=== PATIENT | male | born 1980 | race Caucasian/White ===

== ENCOUNTER 2018-05-11 08:10 | Emergency (ER) | payer MEDICAID ==
[2018-05-11] MEDS: HYDROCODONE/APAP (10/325) TAB PO (08:36)
== END 2018-05-11 10:25 | disposition left against medical advice (07) ==
LOC: FTE 10:25
DX: S09.90XA Unspecified injury of head, initial encounter (principal); S79.912A Unspecified injury of left hip, initial encounter; S69.92XA Unspecified injury of left wrist, hand and finger(s), initial encounter; S69.91XA Unspecified injury of right wrist, hand and finger(s), initial encounter; S50.812A Abrasion of left forearm, initial encounter; R20.0 Anesthesia of skin; V49.40XA Driver injured in collision with unspecified motor vehicles in traffic accident, initial encounter
CPT/HCPCS: 70450; 70486; 72100; 72125; 73130-50; 73510; 99285-25

== ENCOUNTER 2018-10-10 21:19 | Emergency (ER) | payer SELFPAY, MEDICAID ==
[2018-10-11] MEDS: SOD CHLORIDE 0.9% 1,000 ML IV (00:05)
[2018-10-11] MEDS: METOCLOPRAMIDE 10 MG INJ IV (00:06)
[2018-10-11] MEDS: KETOROLAC 30 MG INJ IV (00:06)
[2018-10-11] MEDS: DIPHENHYDRAMINE 50 MG INJ IV (00:06)
== END 2018-10-11 02:13 | disposition home or self-care (01) ==
LOC: FTE 21:19
DX: R51 Headache (principal)
CPT/HCPCS: 96374; 96375; 99284-25; J1200